=== PATIENT | male | born 1945 | race Caucasian/White ===

== ENCOUNTER 2021-03-08 12:02 | Day surgery (SDC) | payer OTHER ==
[~2021-03-08 12:02] MED LIST: ALBU90OI INH; ASPI325EC PO; ATECHL PO; ATENOLOL; ATORVASTATIN CA10 M1 PO; CHLORTHALIDONE; CLIN300 PO; ENOX40I SC; GABA600 PO; ICY HOT TOP; OMEPRAZOLE MAGN20 MG PO; OXYC5 PO; PROM25 PO; Percocet 5-3251 EACH PO; TERA5 PO; TERB250 PO; Voltaren100 GM TOP
== END 2021-03-08 23:16 | disposition home or self-care (01) ==
LOC: CT 12:02
DX: R01.1 Cardiac murmur, unspecified (principal); E78.5 Hyperlipidemia, unspecified; I10 Essential (primary) hypertension
CPT/HCPCS: 71275; Q9967

== ENCOUNTER → 2022-08-23 | Outpatient (CLI) | payer OTHER | END | disposition home or self-care (01) | LOC: LAB 18:07 → LAB SHORT 18:07 | PROVIDERS: Family Medicine | DX: Z12.5 Encounter for screening for malignant neoplasm of prostate (principal); Z11.59 Encounter for screening for other viral diseases | CPT/HCPCS: 86803; G0103 ==

== ENCOUNTER → 2024-08-03 | Outpatient (CLI) | payer OTHER ==
[~2024-08-03] MED LIST changes: +ASCO500 PO; +ATEN50 PO; +FINA5 PO; +GABA300 PO; +IRON SULFATE PO
[2024-08-03 17:48] LABS: BASOPHILS ABSOLUTE AUTO 0.03 K/mm3 (0.00-0.23); BASOPHILS PERCENT AUTO 0 % (0-2); EOSINOPHILS ABSOLUTE AUTO 0.05 K/mm3 (0.00-0.68); EOSINOPHILS PERCENT AUTO 1 % (0-6); Hematocrit 36.5 % (37.0-53.0); Hemoglobin 12.7 g/dL (13.5-17.5); IMMATURE GRAN ABSOLUTE AUTO 0.01 K/mm3 (0.00-0.10); IMMATURE GRAN PERCENT AUTO 0 % (0-1); LYMPHOCYTES ABSOLUTE AUTO 1.91 K/mm3 (0.84-5.20); LYMPHOCYTES PERCENT AUTO 27 % (21-46); MONOCYTES ABSOLUTE AUTO 0.94 K/mm3 (0.16-1.47); MONOCYTES PERCENT AUTO 13 % (4-13); Mean Corpuscular HGB 33.6 pg (26.0-34.0); Mean Corpuscular HGB Conc 34.8 g/dL (31.5-36.5); Mean Corpuscular Volume 97 fL (80-100); Mean Platelet Volume 10.8 fL (9.1-12.4); NEUTROPHILS ABSOLUTE AUTO 4.13 K/mm3 (1.96-9.15); NEUTROPHILS PERCENT AUTO 59 % (41-73); Platelet Count 220 K/mm3 (150-400); RDW Standard Deviation 43.1 fL (35.1-46.3); Red Blood Cell Count 3.78 M/mm3 (4.30-5.90); White Blood Cell Count 7.07 K/mm3 (4.00-11.30)
[2024-08-03 18:16] LABS: Percent Saturation 22.3 % (20.0-50.0)
== END ==
LOC: LAB 16:41 → LAB SHORT 16:41
PROVIDERS: Family Medicine
DX: D50.9 Iron deficiency anemia, unspecified (principal); R53.83 Other fatigue; R63.4 Abnormal weight loss
CPT/HCPCS: 82728; 83540; 83550; 85025

== ENCOUNTER 2024-08-16 04:50 | Day surgery (SDC) | payer OTHER ==
[~2024-08-16 04:50] MED LIST changes: +Sod Ferric Gluc Complx/Sucrose 125 MG in NS 100 ML IV SCH
[2024-08-16 14:57] VITALS: BP 119/74
== END 2024-08-16 16:08 | disposition home or self-care (01) ==
LOC: ATC 04:50
DX: D50.9 Iron deficiency anemia, unspecified (principal); R53.83 Other fatigue; R63.4 Abnormal weight loss; G31.84 Mild cognitive impairment of uncertain or unknown etiology; Z79.899 Other long term (current) drug therapy
CPT/HCPCS: 96365; J2916

== ENCOUNTER 2024-10-13 00:33 | Day surgery (SDC) | payer OTHER ==
[~2024-10-13 00:33] MED LIST changes: -Sod Ferric Gluc Complx/Sucrose 125 MG in NS 100 ML IV SCH
[2024-10-13] MEDS ORDERED: Sod Ferric Gluc Complx/Sucrose 125 MG in NS 100 ML IV SCH (01:00)
[2024-10-13 16:35] VITALS: BP 106/66
== END 2024-10-13 17:35 | disposition home or self-care (01) ==
LOC: ATC 00:33
DX: D50.9 Iron deficiency anemia, unspecified (principal); R53.83 Other fatigue; R63.4 Abnormal weight loss; Z88.7 Allergy status to serum and vaccine; Z79.899 Other long term (current) drug therapy
CPT/HCPCS: 96365; J2916

== ENCOUNTER 2024-10-20 03:43 | Day surgery (SDC) | payer OTHER ==
[~2024-10-20 03:43] MED LIST changes: +Sod Ferric Gluc Complx/Sucrose 125 MG in NS 100 ML IV SCH
[2024-10-20 15:18] VITALS: BP 116/73
== END 2024-10-20 16:14 | disposition home or self-care (01) ==
LOC: ATC 03:43
DX: D50.9 Iron deficiency anemia, unspecified (principal); R53.83 Other fatigue; R63.4 Abnormal weight loss; I10 Essential (primary) hypertension; K21.9 Gastro-esophageal reflux disease without esophagitis; E78.5 Hyperlipidemia, unspecified; Z88.7 Allergy status to serum and vaccine; Z79.899 Other long term (current) drug therapy
CPT/HCPCS: 96365; J2916

== ENCOUNTER 2024-10-27 03:29 | Day surgery (SDC) | payer OTHER ==
[2024-10-27 14:54] VITALS: BP 119/75
== END 2024-10-27 16:02 | disposition home or self-care (01) ==
LOC: ATC 03:29
DX: D50.9 Iron deficiency anemia, unspecified (principal); G31.84 Mild cognitive impairment of uncertain or unknown etiology; K21.9 Gastro-esophageal reflux disease without esophagitis; I10 Essential (primary) hypertension; E78.5 Hyperlipidemia, unspecified; Z79.899 Other long term (current) drug therapy
CPT/HCPCS: 96365; J2916

== ENCOUNTER 2024-11-03 04:52 | Day surgery (SDC) | payer OTHER ==
[~2024-11-03 04:52] MED LIST changes: -Sod Ferric Gluc Complx/Sucrose 125 MG in NS 100 ML IV SCH
[2024-11-03] MEDS ORDERED: Sod Ferric Gluc Complx/Sucrose 125 MG in NS 100 ML IV SCH (06:00)
[2024-11-03 15:45] VITALS: BP 136/68
== END 2024-11-03 16:45 | disposition home or self-care (01) ==
LOC: ATC 04:52
DX: D50.9 Iron deficiency anemia, unspecified (principal); R53.83 Other fatigue; R63.4 Abnormal weight loss; K21.9 Gastro-esophageal reflux disease without esophagitis; I10 Essential (primary) hypertension; E78.5 Hyperlipidemia, unspecified; G31.84 Mild cognitive impairment of uncertain or unknown etiology; Z88.7 Allergy status to serum and vaccine; Z79.899 Other long term (current) drug therapy
CPT/HCPCS: 96365; J2916

== ENCOUNTER 2024-12-08 13:30 | Day surgery (SDC) | payer OTHER ==
[2024-12-08] MEDS ORDERED: Sod Ferric Gluc Complx/Sucrose 125 MG in NS 100 ML IV SCH (13:35)
[2024-12-08 15:08] VITALS: BP 116/83
== END 2024-12-08 16:00 | disposition home or self-care (01) ==
LOC: ATC 13:30
DX: D50.9 Iron deficiency anemia, unspecified (principal); R63.4 Abnormal weight loss; E78.5 Hyperlipidemia, unspecified; I10 Essential (primary) hypertension; G31.84 Mild cognitive impairment of uncertain or unknown etiology; K21.9 Gastro-esophageal reflux disease without esophagitis; Z87.891 Personal history of nicotine dependence; Z79.899 Other long term (current) drug therapy; Z88.7 Allergy status to serum and vaccine
CPT/HCPCS: 96365; J2916

== ENCOUNTER 2024-12-16 01:49 | Day surgery (SDC) | payer OTHER ==
[~2024-12-16 01:49] MED LIST changes: +Sod Ferric Gluc Complx/Sucrose 125 MG in NS 100 ML IV SCH
[2024-12-16 16:15] VITALS: BP 118/63
== END 2024-12-16 17:20 | disposition home or self-care (01) ==
LOC: ATC 01:49
DX: D50.9 Iron deficiency anemia, unspecified (principal); R63.4 Abnormal weight loss; G31.84 Mild cognitive impairment of uncertain or unknown etiology; K21.9 Gastro-esophageal reflux disease without esophagitis; E78.5 Hyperlipidemia, unspecified; I10 Essential (primary) hypertension; Z87.891 Personal history of nicotine dependence; Z79.899 Other long term (current) drug therapy; Z88.7 Allergy status to serum and vaccine
CPT/HCPCS: 96365; J2916

== ENCOUNTER 2025-05-30 09:12 | Day surgery (SDC) | payer OTHER ==
[~2025-05-30] VITALS: Ht 172.7 cm; Wt 71.3 kg
[~2025-05-30 09:12] MED LIST changes: -Sod Ferric Gluc Complx/Sucrose 125 MG in NS 100 ML IV SCH
[2025-05-30] MEDS ORDERED: ATOR10 (10:23)
[2025-05-30] MEDS ORDERED: OMEPRAZOLE20 M1 (10:24)
[2025-05-30 13:51] VITALS: BP 112/96
== END 2025-05-30 12:25 | disposition home or self-care (01) ==
LOC: ORSCSDS 09:12
PROVIDERS: Specialist
PROC: 0DBP8ZX Excision of Rectum, Via Natural or Artificial Opening Endoscopic, Diagnostic (ICD-10-PCS; principal; 2025-05-30 10:45)
PROC: 0DBH8ZX Excision of Cecum, Via Natural or Artificial Opening Endoscopic, Diagnostic (ICD-10-PCS; principal; 2025-05-30 10:45)
PROC: 0DBN8ZX Excision of Sigmoid Colon, Via Natural or Artificial Opening Endoscopic, Diagnostic (ICD-10-PCS; principal; 2025-05-30 10:45)
DX: Z12.11 Encounter for screening for malignant neoplasm of colon (principal); Z86.0100 Personal history of colon polyps, unspecified; D12.0 Benign neoplasm of cecum; D12.5 Benign neoplasm of sigmoid colon; K62.1 Rectal polyp; K64.8 Other hemorrhoids; K57.30 Diverticulosis of large intestine without perforation or abscess without bleeding; K21.9 Gastro-esophageal reflux disease without esophagitis; E78.5 Hyperlipidemia, unspecified; I10 Essential (primary) hypertension; F03.90 Unspecified dementia, unspecified severity, without behavioral disturbance, psychotic disturbance, mood disturbance, and anxiety; Z79.899 Other long term (current) drug therapy
CPT/HCPCS: 88305; J2704; J7120